=== PATIENT | male | born 1960 | race Caucasian/White ===

== ENCOUNTER 2019-01-06 11:22 | Emergency (ER) | payer BC ==
[2019-01-06] MEDS: Sodium Chloride 0.9% 10 ML Syringe FLUSH PRN (11:40)
[2019-01-06] MEDS: Ondansetron 4 MG/2 ML SDV IVPUSH ONE (11:51)
[2019-01-06] MEDS: Sodium Chloride 0.9% 1,000 ML IV SCH (12:50)
[2019-01-06] MEDS: Prochlorperazine 10 MG in Sodium Chloride 0.9% 50 ML IV ONE (12:54)
[2019-01-06] MEDS: Aspirin 81 MG Tab.Chew PO ONE (13:15)
--- NOTE | 2019-01-06 13:17 | EDM.PDOC ---
ED HPI GENERAL MEDICAL PROBLEM - General Chief Complaint: Neuro Symptoms/Deficits Stated Complaint: NAUSEA AND VOMITTING Time Seen by Provider: 01/06/19 11:45 Source of Information: Reports: Patient, Family History Limitations: Reports: No Limitations - History of Present Illness INITIAL COMMENTS - FREE TEXT/NARRATIVE: patient presents today with concern for sudden onset dizziness, feeling like the world is spinning, feeling like he might black out, nausea and vomiting, sweats that started around 10am. He reports he was feeling well this AM, got up as usual and had breakfast at 4am, then lunch of grapes and banana at 9 or so. Has not had any diarrhea. His ate similar food today and does not have any symptoms. No headache ( disagrees, saying he has complained of headache last 3 days at home), has chronic ringing in ears which is unchanged, no fever. No blood in vomit. Feels much better after throwing up. URI 3 weeks ago, recovered, no sore throat, pain in ears, chronic slight cough which is unchanged, no urinary symptoms. 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 No history heart problems. [place] well this morning. - Related Data Allergies Allergy/AdvReac Type Severity Reaction Status Date / Time IV CONTRAST DYE Allergy Unknown UNKNOWN Uncoded 01/06/19 13:15 Home Meds: Home Meds Aspirin [Children's Aspirin] 81 mg PO DAILY 01/06/19 [History] Fish Oil/[place]ton-3 Fatty Acids [Fish Oil 1,000 MG] 1,000 mg TID 01/06/19 [History] Losartan [Cozaar] 25 mg PO BEDTIME 01/06/19 [History] Mycophenolate Mofetil [Cellcept] 750 mg PO BID 01/06/19 [History] Sulfamethoxazole/Trimethoprim [Bactrim 400-80 MG] 1 each PO DAILY 01/06/19 [ History] cycloSPORINE, Modified [Neoral] 150 mg PO BID 01/06/19 [History] Past Medical History HEENT History: Reports: Hard of Hearing Cardiovascular History: Reports: Hypertension Gastrointestinal History: Reports: GERD Genitourinary History: Reports: Acute Renal Failure, Other (See Below) Other Genitourinary History: hx IGA, hx kidney transplant Musculoskeletal History: Reports: Arthritis, Fracture Other Musculoskeletal History: hx fx R ankle, R arm Endocrine/Metabolic History: Reports: Obesity/BMI 30+ Immunologic History: Reports: Immunosuppression Other Immunologic History: hx kidney transplant Dermatologic History: Reports: Psoriasis - Infectious Disease History Infectious Disease History: Reports: Chicken Pox - Past Surgical History HEENT Surgical History: Reports: Adenoidectomy, Tonsillectomy GI Surgical History: Reports: Colonoscopy Male Surgical History: Reports: Nephrectomy, Other (See Below) Other Male Surgeries/Procedures: hx kidney transplant Musculoskeletal Surgical History: Reports: Other (See Below) Other Musculoskeletal Surgeries/Procedures:: R ankle surgery Social & Family History - Family History Family Medical History: Noncontributory - Tobacco Use Smoking Status *Q: Never Smoker - Caffeine Use Caffeine Use: Reports: Coffee, Soda - Alcohol Use Alcohol Use History: Yes Alcohol Use Comment: very rare social drink - Recreational Drug Use Recreational Drug Use: No ED ROS GENERAL - Review of Systems Review Of Systems: See Below Constitutional: Reports: Diaphoresis. Denies: Fever, Chills, Night Sweats, Decreased Appetite HEENT: Reports: Vertigo. Denies: Ear Pain, Eye Pain, Rhinitis, Sinus Problem Respiratory: Denies: Shortness of Breath, Pleuritic Chest Pain, Cough, Sputum Cardiovascular: Denies: Chest Pain, Blood Pressure Problem (usually well controlled ) GI/Abdominal: Reports: Vomiting. Denies: Abdominal Pain, Black Stool, Bloody Stool : Denies: Dysuria, Flank Pain, Frequency Musculoskeletal: Denies: Joint Pain Skin: Denies: Wound, Lesions Neurological: Denies: Headache, Numbness, Tingling, Gait Disturbance Hematologic/Lymphatic: Denies: Easy Bleeding, Easy Bruising ED EXAM, GENERAL - Physical Exam Exam: See Below Free Text/Narrative:: Gen.: Alert, 58-year-old male in mild distress. Slightly diaphoretic after vomiting, otherwise nontoxic appearing. Tympanic remainder clear bilaterally with normal light reflex and throat is without erythema, mucous members are moist there is no tonsillar enlargement or exudates. No cervical lymphadenopathy and no sinus tenderness. Freely moving neck without any limitations. Heart is regular rate and rhythm, slightly tachycardic, lungs are clear With no wheezes or crackles. Abdomen positive bowel sounds, soft nondistended nontender with no rebound or guarding. No tenderness with palpation over his transplanted kidney. Peripheral pulses +2 out of 4 in both the upper and lower extremities and there is no lower extremity edema. There are no obvious skin lesions or wounds. Pupils are equal and reactive, facial muscles symmetric, strength equal side to side. Course - Vital Signs Text/Narrative:: Initial evaluation ordered as complete sepsis workup given the patient's immunocompromised status. Other than acute onset vomiting, not really focal to any place in particular. Has not had urinary symptoms, cough, denies headache to me although his said he did have one the last couple of days. No obvious skin wounds or lesions. Symptoms actually most consistent with acute onset food poisoning or viral gastroenteritis. He does also seem to have a component of vertigo, Lamont-Hallpike was not completed as the patient was tremendously symptomatic. Given Zofran, IV fluids started and will also order Compazine. He does feel quite a bit better after he vomits for a little while Last Recorded V/S: Last Vital Signs Temp 36.3 C 01/06/19 11:22 Pulse 153 H 01/06/19 13:22 Resp 18 01/06/19 12:55 BP 145/109 H 01/06/19 13:22 Pulse Ox 86 L 01/06/19 13:35 Orthostatic Blood Pressure [ 153/135 Standing] Orthostatic Blood Pressure [ 184/126 Sitting] Orthostatic Blood Pressure [ 178/105 Supine] - Orders/Labs/Meds Orders: Active Orders 24 hr Category Date Time Status Oxygen Therapy Adult [Oxygen Therapy, ED] [RC] Care 01/06/19 13:35 Active ASDIRECTED CULTURE BLOOD [BC] Urgent Lab 01/06/19 12:25 Received CULTURE BLOOD [BC] Urgent Lab 01/06/19 12:30 Received URINALYSIS W/MICROSCOPIC [UA W/MICROSCOPIC] [URIN] Stat Lab 01/06/19 11:51 Ordered Blood Culture x2 Reflex Set [OM.PC] Urgent Oth 01/06/19 11:49 Ordered Peripheral IV Insertion Adult [OM.PC] Routine Oth 01/06/19 11:52 Ordered Labs: Laboratory Tests 01/06/19 01/06/19 01/06/19 Range/Units 11:38 11:38 11:38 WBC 14.1 H (4.5-12.0) X10-3/uL RBC 5.40 (4.30-5.75) x10(6)uL Hgb 16.5 (13.5-17.8) g/dL Hct 47.9 (30.0-51.3) % MCV 88.8 (80-96) fL MCH 30.5 (27.7-33.6) pg MCHC 34.4 (32.2-35.4) g/dL RDW 13.2 (11.5-15.5) % Plt Count 322 (125-369) X10(3)uL MPV 8.2 (7.4-10.4) fL Neut % (Auto) 67.9 (46-82) % Lymph % (Auto) 20.5 (13-37) % Faulkner % (Auto) 9.0 (4-12) % Eos % (Auto) 2 (1.0-5.0) % Baso % (Auto) 1 (0-2) % Neut # (Auto) 9.5 H (1.6-8.3) # Lymph # (Auto) 2.9 (0.6-5.0) # Faulkner # (Auto) 1.3 (0.0-1.3) # Eos # (Auto) 0.3 (0.0-0.8) # Baso # (Auto) 0.1 (0.0-0.2) # Sodium 140 (135-145) mmol/L Potassium 2.8 L* (3.5-5.3) mmol/L Chloride 103 (100-110) mmol/L Carbon Dioxide 26 (21-32) mmol/L BUN 22 H (7-18) mg/dL Creatinine 1.3 (0.70-1.30) mg/dL Est Cr Clr Drug Dosing 70.26 mL/min Estimated GFR (MDRD) 56 L (>60) BUN/Creatinine Ratio 16.9 (9-20) Glucose 144 H (80-116) mg/dL Lactic Acid 2.3 H (0.4-2.2) mmol/L Calcium 9.5 (8.6-10.2) mg/dL Total Bilirubin 0.9 (0.1-1.3) mg/dL AST 16 (5-25) IU/L ALT 28 (12-36) U/L Alkaline Phosphatase 87 (56-112) IU/L Troponin I (<0.017-0.056) ng/mL C-Reactive Protein (0.5-0.9) mg/dL Total Protein 7.9 (6.0-8.0) g/dL Albumin 4.1 (3.2-4.6) g/dL Globulin 3.8 g/dL Albumin/Globulin Ratio 1.1 01/06/19 01/06/19 Range/Units 11:38 12:25 WBC (4.5-12.0) X10-3/uL RBC (4.30-5.75) x10(6)uL Hgb (13.5-17.8) g/dL Hct (30.0-51.3) % MCV (80-96) fL MCH (27.7-33.6) pg MCHC (32.2-35.4) g/dL RDW (11.5-15.5) % Plt Count (125-369) X10(3)uL MPV (7.4-10.4) fL Neut % (Auto) (46-82) % Lymph % (Auto) (13-37) % Faulkner % (Auto) (4-12) % Eos % (Auto) (1.0-5.0) % Baso % (Auto) (0-2) % Neut # (Auto) (1.6-8.3) # Lymph # (Auto) (0.6-5.0) # Faulkner # (Auto) (0.0-1.3) # Eos # (Auto) (0.0-0.8) # Baso # (Auto) (0.0-0.2) # Sodium (135-145) mmol/L Potassium (3.5-5.3) mmol/L Chloride (100-110) mmol/L Carbon Dioxide (21-32) mmol/L BUN (7-18) mg/dL Creatinine (0.70-1.30) mg/dL Est Cr Clr Drug Dosing mL/min Estimated GFR (MDRD) (>60) BUN/Creatinine Ratio (9-20) Glucose (80-116) mg/dL Lactic Acid (0.4-2.2) mmol/L Calcium (8.6-10.2) mg/dL Total Bilirubin (0.1-1.3) mg/dL AST (5-25) IU/L ALT (12-36) U/L Alkaline Phosphatase (56-112) IU/L Troponin I < 0.017 L (<0.017-0.056) ng/mL C-Reactive Protein 0.2 L (0.5-0.9) mg/dL Total Protein (6.0-8.0) g/dL Albumin (3.2-4.6) g/dL Globulin g/dL Albumin/Globulin Ratio Meds: Medications Discontinued Medications Generic Name Dose Route Start Last Admin Trade Name Freq PRN Reason Stop Dose Admin Aspirin 243 mg 01/06/19 13:20 01/06/19 13:15 Aspirin PO 01/06/19 13:21 243 mg ONETIME ONE Administration Diltiazem HCl 15 mg 01/06/19 13:45 01/06/19 14:03 Cardizem IVPUSH 01/06/19 13:46 Not Given ONETIME ONE Diltiazem HCl Confirm 01/06/19 13:48 01/06/19 13:53 Diltiazem Administered 01/06/19 13:49 25 mg Dose Administration 25 mg .ROUTE .STK-MED ONE Potassium Chloride 20 meq/ 100 mls @ 50 mls/hr 01/06/19 12:42 01/06/19 13:28 Premix IV 01/06/19 14:41 50 mls/hr ONETIME ONE Administration Prochlorperazine Edisylate 10 52 mls @ 150 mls/hr 01/06/19 12:42 01/06/19 12: 54 mg/ Sodium Chloride IV 01/06/19 13:02 150 mls/hr ONETIME ONE Administration Sodium Chloride 1,000 mls @ 125 mls/hr 01/06/19 12:45 01/06/19 12:50 Normal Saline IV 125 mls/hr ASDIRECTED RAMSEY Administration Diltiazem HCl 125 mg/ Sodium 125 mls @ 5 mls/hr 01/06/19 14:00 01/06/19 14:59 Chloride IV 10 mg/hr TITRATE RAMSEY 10 mls/hr Titration Protocol 5 MG/HR Metoprolol Tartrate 5 mg 01/06/19 13:20 01/06/19 13:22 Lopressor IVPUSH 01/06/19 13:21 5 mg ONETIME ONE Administration Ondansetron HCl 8 mg 01/06/19 11:50 01/06/19 11:51 Zofran IVPUSH 01/06/19 11:51 8 mg ONETIME ONE Administration Sodium Chloride 10 ml 01/06/19 11:52 01/06/19 11:40 Saline Flush FLUSH 10 ml ASDIRECTED PRN Administration Keep Vein Open - Re-Assessments/Exams Free Text/Narrative Re-Assessment/Exam: Initial labs reviewed, elevated white blood cell count, this may in fact be chronic and related to the cyclosporine. CRP is negative, he has an acutely low potassium but otherwise no significant electrolyte abnormalities. Potassium replacement ordered, I don't think the patient will tolerate by mouth at this time. Around 1 PM and noted to have a sudden increase in heart rate on the monitor by nursing, EKG obtained and shows now atrial fibrillation with ventricular response around 131. Troponin added on to earlier labs, fluids increased and a single dose of Lopressor ordered. Call placed to initiate transfer to higher level of care. Patient still had good blood pressure throughout this time and was mentating normally. Vomiting seems to have improved following the Compazine Discussed with [facility] hospitalist, suspect atrial fibrillation is related to his acute stressors and probably not a primary heart pathology. Continue to place fluids, potassium, no response to Lopressor so will start Cardizem drip. accepting at [facility] once patient is stable for transport. Heart rate improved following initiation of Cardizem drip. Blood pressure and mentation remained stable. Initial troponin from first labs this morning was negative, and patient is relatively asymptomatic with his atrial fibrillation. Transferred to [facility] by ACLS crew. Does not appear septic at this time, diaphoresis has resolved with vomiting, he has good peripheral pulses and is not flushed, has not had a fever. Chest x-ray and urinalysis do not show any obvious sources of infection at this time. Did not give any antibiotics prior to transfer. Departure - Departure Time of Disposition: 15:30 Disposition: DC/Tfer to [facility] 02 Condition: Fair Clinical Impression: Atrial arrhythmia, Renal transplant, status post - Discharge Information *PRESCRIPTION DRUG MONITORING PROGRAM REVIEWED*: Not Applicable *COPY OF PRESCRIPTION DRUG MONITORING REPORT IN PATIENT RAY: Not Applicable Referrals: Dariel Pinedo MD [Primary Care Provider] - Forms: ED Department Discharge - My Orders Last 24 Hours: My Active Orders 01/06/19 11:49 Blood Culture x2 Reflex Set [OM.PC] Urgent 01/06/19 11:51 URINALYSIS W/MICROSCOPIC [UA W/MICROSCOPIC] [URIN] Stat 01/06/19 11:52 Peripheral IV Insertion Adult [OM.PC] Routine 01/06/19 12:25 CULTURE BLOOD [BC] Urgent 01/06/19 12:30 CULTURE BLOOD [BC] Urgent 01/06/19 13:35 Oxygen Therapy Adult [Oxygen Therapy, ED] [RC] ASDIRECTED - Assessment/Plan Last 24 Hours: My Active Orders 01/06/19 11:49 Blood Culture x2 Reflex Set [OM.PC] Urgent 01/06/19 11:51 URINALYSIS W/MICROSCOPIC [UA W/MICROSCOPIC] [URIN] Stat 01/06/19 11:52 Peripheral IV Insertion Adult [OM.PC] Routine 01/06/19 12:25 CULTURE BLOOD [BC] Urgent 01/06/19 12:30 CULTURE BLOOD [BC] Urgent 01/06/19 13:35 Oxygen Therapy Adult [Oxygen Therapy, ED] [RC] ASDIRECTED
[2019-01-06] MEDS: Metoprolol Tartrate 5 MG/5 ML SDV IVPUSH ONE (13:22)
[2019-01-06] MEDS: Potassium Chloride 20 MEQ in Premix Bag 1 BAG IV ONE (13:28)
[2019-01-06] MEDS: Diltiazem 25 MG/5 ML SDV ONE (13:53)
[2019-01-06] MEDS: Diltiazem 50 MG/10 ML SDV IVPUSH ONE (14:03)
[2019-01-06] MEDS: Diltiazem 125 MG in Sodium Chloride 0.9% 100 ML IV SCH (14:12)
--- NOTE | 2019-01-07 08:40 | CR ---
INDICATION: Syncope. CHEST: AP and lateral views of the chest were obtained 01/06/19 - no comparisons. The heart appears generous in size but is emphasized by the AP positioning. It may be at the upper limits of normal in size. The aorta is tortuous. A definite active infiltrate or effusion was not identified. Increased density overlying the spine at the diaphragm may be on the basis of a very tortuous aorta in that area. IMPRESSION: No acute process - probable ASHD. MTDD
== END 2019-01-06 15:40 ==
LOC: FB.ED 11:22
DX: I49.9 Cardiac arrhythmia, unspecified (principal); Z94.0 Kidney transplant status; I10 Essential (primary) hypertension; Z91.041 Radiographic dye allergy status; Z79.82 Long term (current) use of aspirin; Z79.899 Other long term (current) drug therapy
CPT/HCPCS: 36415; 71046; 80053; 83605; 84484; 85025; 86140; 87040; 96365; 96366; 96367; 96368; 96375; 96376; 99285; A9270; J0780; J2405; J3480; J3490; J7030; J7050

== ENCOUNTER 2021-09-10 15:46 | Emergency (ER) | payer BC ==
[2021-09-10] MEDS ORDERED: Sodium Chloride 0.9% 10 ML Syringe FLUSH PRN (16:56)
[2021-09-10] MEDS ORDERED: Sodium Chloride 0.9% 1,000 ML IV ONE (17:03)
[2021-09-10] MEDS ORDERED: Ondansetron 4 MG/2 ML SDV IVPUSH ONE (17:03)
[2021-09-10 19:38] LABS: CORONAVIRUS COVID-19 NAA NEGATIVE (NEGATIVE)
[2021-09-10] MEDS ORDERED: Meclizine 25 MG Tab PO ONE (20:22)
== END 2021-09-10 20:59 | disposition home or self-care (01) ==
LOC: FB.ED 15:46
DX: I10 Essential (primary) hypertension (principal); E66.9 Obesity, unspecified; Z91.041 Radiographic dye allergy status; Z79.82 Long term (current) use of aspirin; Z79.899 Other long term (current) drug therapy; Z20.822 Contact with and (suspected) exposure to COVID-19
CPT/HCPCS: 0240U; 36415; 70450; 71045; 80053; 81001; 83735; 84484; 85025; 93005; 96374; 96375; 99284; A9270; J2405; J3360; J7030

== ENCOUNTER 2021-11-27 06:42 | Day surgery (SDC) | payer BC ==
[2021-11-27] MEDS ORDERED: Midazolam 1 MG/ML 2 ML SDV IV ONE (06:43)
[2021-11-27] MEDS ORDERED: Ketamine 500 mg/10 ML MDV IV ONE (06:43)
[2021-11-27] MEDS ORDERED: Propofol 200 MG/20 ML SDV IV ONE (06:43)
[2021-11-27] MEDS ORDERED: Labetalol 100 MG/20 ML MDV IV ONE (06:43)
[2021-11-27] MEDS ORDERED: hydrALAZINE 20 MG/ML SDV IV ONE (06:43)
[2021-11-27] MEDS ORDERED: Sodium Chloride 0.9% 10 ML Syringe FLUSH PRN (06:45)
[2021-11-27] MEDS: Lactated Ringers 1,000 ML IV SCH (07:43)
== END 2021-11-27 10:53 | disposition home or self-care (01) ==
LOC: FB.SDS 06:42
PROVIDERS: ATTEND Surgery
DX: Z12.11 Encounter for screening for malignant neoplasm of colon (principal); K62.1 Rectal polyp; K57.30 Diverticulosis of large intestine without perforation or abscess without bleeding; E78.5 Hyperlipidemia, unspecified; D84.9 Immunodeficiency, unspecified; I10 Essential (primary) hypertension; I48.91 Unspecified atrial fibrillation; M10.9 Gout, unspecified; Z86.010 Personal history of colon polyps; Z94.0 Kidney transplant status; Z91.041 Radiographic dye allergy status; Z90.89 Acquired absence of other organs; Z98.890 Other specified postprocedural states; Z79.82 Long term (current) use of aspirin; Z79.899 Other long term (current) drug therapy
CPT/HCPCS: 00812-QZ; 88305; J0360; J2250; J2704; J3490; J7120